=== PATIENT | female | born 1995 | race Caucasian/White ===

== ENCOUNTER 2018-10-16 19:29 | Inpatient (IN) | payer OTHER ==
[~2018-10-16] VITALS: Ht 154.9 cm; Wt 72.7 kg
[2018-10-16 19:32] VITALS: Ht 154.9 cm; Wt 72.7 kg
[2018-10-16] MEDS ORDERED: HYDROmorphONE 2 MG/ML SYG IV ONE (20:00)
[2018-10-16] MEDS ORDERED: ONDANSETRON 4 MG INJ IV ONE (20:00)
[2018-10-16] MEDS ORDERED: HYDROmorphONE 1 MG/ML SYG IV STA (20:11)
[2018-10-16] MEDS ORDERED: ONDANSETRON 4 MG INJ IV STA (20:11)
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
[2018-10-16] MEDS ORDERED: ONDANSETRON 4 MG INJ IV PRN (22:30)
[2018-10-16] MEDS ORDERED: ACETAMINOPHEN 325 MG TAB PO PRN (22:30)
[2018-10-16] MEDS ORDERED: HYDROmorphONE 2 MG/ML SYG IV STA (22:38)
[2018-10-16] MEDS ORDERED: IOHEXOL 300MG/ML 150 ML BTL ONE (23:39)
[2018-10-16] MEDS ORDERED: SOD CHLORIDE 0.9% 100 ML ONE (23:39)
[2018-10-17] VITALS (24 sets, daily range): BP systolic 107–154; BP diastolic 70–104; PULSE 72–107; RESP 12–28
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
[2018-10-17] MEDS ORDERED: IBUP-1542 PO (00:19)
[2018-10-17] MEDS ORDERED: ONDANSETRON 4 MG TAB PO PRN (01:30)
[2018-10-17] MEDS ORDERED: HYDROCODONE/APAP (5/325) TAB PO PRN ×2 (01:30)
[2018-10-17] MEDS ORDERED: ACETAMINOPHEN 325 MG TAB PO PRN (01:30)
[2018-10-17] MEDS ORDERED: NACL 0.9% 3 ML SYG IV SCH ×2 (01:30→08:30)
[2018-10-17] MEDS ORDERED: DOCUSATE SODIUM 100 MG CAP PO PRN (01:30)
[2018-10-17] MEDS: FAMOTIDINE 20 MG TAB PO SCH ×3 (01:52→20:17)
[2018-10-17] MEDS: D5-NS + KCL 20 MEQ 1,000 ML IV SCH ×3 (01:53→20:17)
[2018-10-17] MEDS ORDERED: HYDROmorphONE 1 MG/ML SYG IV ONE (05:30)
--- NOTE | 2018-10-17 06:20 | HPN ---
Date/Time of Note Date/Time of Note DATE: 10/17/18 TIME: 06:19 Interval H&P Admission Note Pt. seen H&P reviewed: No system changes Patient denies fever, chills, shortness of breath, chest pain, nausea/vomiting, constipation, diarrhea. Continues to have some numbness, and tingling in the deep peroneal nerve distribution otherwise neurovascularly intact. Compartments are full but compressible. No pain out of proportion to passive extension of great toe. MUSCULOSKELETAL: Right lower extremity There is a superficial abrasion over the anteromedial ankle. There is severe swelling and ecchymosis. There is new formation of fracture blisters both serous and sanguinous over the medial aspect of the ankle and foot. Sensation is intact but decreased to deep peroneal nerve distribution. Sensation intact to light touch in a sural, saphenous, superficial peroneal, medial and lateral plantar nerve distribution. Motor is intact, patient able to dorsiflex and plantarflex ankle and extend and flex great toe. Dorsalis Pedis pulse +2, Brisk capillary refill. Compartments are soft. Calves non-tender to palpation bilaterally. ALBERTINA VAZQUEZ MD October 17, 2018 06:20
--- NOTE | 2018-10-17 06:20 | PREAC ---
Date/Time of Note Date/Time of Note DATE: 10/17/18 TIME: 06:18 Anesthesia Eval and Record Evaluation Time Pre-Procedure Interview DATE: 10/17/18 TIME: 06:18 Age 23 Sex female NPO: 8 hrs Preoperative diagnosis right ankle fx Planned procedure orif right open ankle fracture Past Medical History Past Medical History: None Surgery & Anesthesia Issues No known issue Meds Anticoagulation: No Beta Tomas within 24 hr: No Reason Beta Tomas not given: Pt. not on B-Tomas Reported Medications Ibuprofen* (Ibuprofen*) 600 Mg Tablet, 600 MG PO Q6H PRN for PAIN LEVEL 6-10, TAB 10/17/18 Current Medications Ondansetron HCl (Zofran Inj) 4 mg BRIDGE ORDER PRN IV NAUSEA/VOMITING Last administered on 10/16/18at 22:44; Admin Dose 4 MG; Start 10/16/18 at 22:30; Stop 10/17/18 at 22:29 Acetaminophen (Tylenol Tab) 650 mg ER BRIDGE PRN PO .MILD PAIN 1-3 OR TEMP; Start 10/16/18 at 22:30; Stop 10/17/18 at 22:29 IV Flush (NS 3 ml) 3 ml PER PROTOCOL IV ; Start 10/17/18 at 01:30 Ondansetron HCl (Zofran Tab) 4 mg Q6H PRN PO NAUSEA/VOMITING; Start 10/17/18 at 01:30 Acetaminophen (Tylenol Tab) 650 mg Q6H PRN PO .PAIN 1-3 OR TEMP; Start 10/17/18 at 01:30 Acetaminophen/ Hydrocodone Bitart ([place] (5/325)) 1 tab Q6H PRN PO .MOD PAIN 4- 6; Start 10/17/18 at 01:30 Acetaminophen/ Hydrocodone Bitart ([place] (5/325)) 2 tab Q6H PRN PO .SEVERE PAIN 7-10 Last administered on 10/17/18at 01:53; Admin Dose 2 TAB; Start 10/17/18 at 01:30 Docusate Sodium (Colace) 100 mg Q12H PRN PO .CONSTIPATION; Start 10/17/18 at 01:30 Famotidine (Pepcid) 20 mg Q12 PO Last administered on 10/17/18at 01:52; Admin Dose 20 MG; Start 10/17/18 at 01:30 Potassium Chloride/Dextrose/ Sod Cl 1,000 ml @ 100 mls/hr Q10H IV Last administered on 10/17/18at 01:53; Admin Dose 100 MLS/HR; Start 10/17/18 at 01:30 Meds reviewed: Yes Allergies Coded Allergies: No Known Allergy (Unverified , 10/16/18) Allergies Reviewed: Yes Labs/Studies Labs Reviewed: Reviewed by anesthesiologist Result Diagram: 10/16/18210410/16/182104 Laboratory Tests 10/16/18 21:05 test: Negative Pre-procedure Exam Last vitals Vital Signs Date Temp Pulse Resp B/P (MAP) Pulse Ox O2 O2 Flow FiO2 Time Delivery Rate 10/17/18 98.7 83 20 146/84 98 00:45 (104) 10/17/18 Room Air 00:22 Airway: Adequate mouth opening, Adequate thyromental dist Mallampati: Mallampati II Teeth: Normal Lung: Normal Heart: Normal ASA Physical Status ASA physical status: 1 Emergency: E Planned Anesthetic General/MAC: LMA Planned Pain Management Parenteral pain med Pre-operative Attestations Prior to commencing anesthesia and surgery, the patient was re-evaluated, there was verification of: *The patient's identity *The results of appropriate recent lab work and preoperative vital signs *The above evaluation not changing prior to induction *Anesthetic plan, risk benefits, alternative and complications discussed with patient/family; questions answered; patient/family understands, accepts and wishes to proceed. OSCAR MCDONNELL October 17, 2018 06:20
[2018-10-17] MEDS ORDERED: PROPOFOL 20 ML ONE (06:24)
[2018-10-17] MEDS ORDERED: LIDOCAINE 2% (SDV) 5 ML INJ ONE (06:39)
[2018-10-17] MEDS ORDERED: ROCURONIUM 50 MG INJ ONE (06:39)
[2018-10-17] MEDS ORDERED: DEXAMETHASONE 4 MG/ML 5 ML INJ ONE (06:39)
[2018-10-17] MEDS ORDERED: ONDANSETRON 4 MG INJ ONE (06:40)
[2018-10-17] MEDS ORDERED: morphine 10 MG INJ ONE (06:52)
[2018-10-17] MEDS ORDERED: KETOROLAC 30 MG INJ ONE (07:49)
--- NOTE | 2018-10-17 08:14 | PAC ---
Date/Time of Note Date/Time of Note DATE: 10/17/18 TIME: 08:13 Post-Anesthesia Notes Post-Anesthesia Note Last documented vital signs Vital Signs Date Temp Pulse Resp B/P (MAP) Pulse Ox O2 O2 Flow FiO2 Time Delivery Rate 10/17/18 98.7 83 20 146/84 98 0812 (104) 10/17/18 Room Air 00:22 Activity: WNL Respiratory function: WNL Cardiovascular function: WNL Mental status: Baseline Pain reasonably controlled: Yes Hydration appropriate: Yes Nausea/Vomiting absent: Yes OSCAR MCDONNELL October 17, 2018 08:13
[2018-10-17] MEDS ORDERED: FENTAnyl 50 MCG/ML VIAL ONE (08:25)
[2018-10-17] MEDS: LACTATED RINGER'S 1,000 ML IV SCH ×2 (08:29→19:51)
[2018-10-17] MEDS ORDERED: FENTAnyl 50 MCG/ML VIAL IV PRN ×2 (08:30)
[2018-10-17] MEDS ORDERED: hydrALAzine 20 MG INJ IV PRN (08:30)
[2018-10-17] MEDS ORDERED: ONDANSETRON 4 MG INJ IV PRN (08:30)
[2018-10-17] MEDS ORDERED: LABETALOL HCL 20MG INJ IV PRN (08:30)
[2018-10-17] MEDS ORDERED: HYDROmorphONE 1 MG/5 ML IV SYRINGE IV PRN ×3 (08:30)
[2018-10-17] MEDS ORDERED: MAGNESIUM HYDROXIDE 30ML CUP PO PRN (08:30)
[2018-10-17] MEDS: CEFAZOLIN 2 GM/50 ML (PMX) 50 ML IVPB SCH ×2 (08:30→15:27)
[2018-10-17] MEDS ORDERED: SENNA/DOCUSATE NA (8.6MG/50MG) TAB PO PRN (08:30)
[2018-10-17] MEDS ORDERED: NALOXONE (0.4 MG/ML) INJ IV PRN (08:30)
[2018-10-17] MEDS ORDERED: oxyCODONE 5 MG TAB PO PRN (08:30)
[2018-10-17] MEDS ORDERED: METOCLOPRAMIDE 10 MG INJ IV PRN (08:30)
[2018-10-17] MEDS ORDERED: BISACODYL 10 MG SUPP PR PRN (08:30)
[2018-10-17] MEDS ORDERED: EPHEDrine 25 MG/5 ML SYG IV PRN (08:30)
[2018-10-17] MEDS ORDERED: KETOROLAC 30 MG INJ IV PRN (08:30)
[2018-10-17] MEDS ORDERED: MIDAZOLAM 1 MG/ML 2 ML INJ IV PRN (08:30)
[2018-10-17] MEDS ORDERED: DIPHENHYDRAMINE 50 MG INJ IV PRN ×2 (08:30)
[2018-10-17] MEDS ORDERED: ALBUTEROL 0.083% (NEB) 2.5 MG/3 ML AMP HHN PRN (08:30)
[2018-10-17] MEDS ORDERED: MEPERIDINE 25 MG INJ IV PRN (08:30)
[2018-10-17] MEDS ORDERED: DOCUSATE SODIUM 100 MG CAP PO ONE (08:30)
[2018-10-17] MEDS ORDERED: NA PHOSPHATE/BIPHOS 133 ML ENEMA PR PRN (08:30)
[2018-10-17] MEDS: FENTAnyl 50 MCG/ML VIAL IV PRN ×2 (08:34→08:36)
[2018-10-17] MEDS ORDERED: DOCU-144 PO (10:36)
[2018-10-17] MEDS ORDERED: HYDR-3980 PO (10:36)
--- NOTE | 2018-10-17 10:37 | PDOCDIS ---
Discharge Instructions CONDITION [id number] Patient Condition: [id number] Good HOME CARE INSTRUCTIONS: [id number] Diet Instructions: [id number] Regular ACTIVITY: [id number] Activity Restrictions: [id number] No Weight Bearing FOLLOW UP/APPOINTMENTS Follow-up Plan pcp [address] Thomason 1 week JERRY MAURICIO MD October 17, 2018 10:37
[2018-10-17] MEDS: oxyCODONE 5 MG TAB PO PRN ×3 (12:35→22:46)
[2018-10-17] MEDS: ACETAMINOPHEN 500 MG TAB PO SCH ×2 (14:00→21:53)
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
[2018-10-17] MEDS: HYDROmorphONE 1 MG/ML SYG IV PRN ×2 (15:33→20:16)
[2018-10-17] MEDS ORDERED: GABAPENTIN 300 MG CAP PO SCH (21:00)
[2018-10-18] MEDS: CEFAZOLIN 2 GM/50 ML (PMX) 50 ML IVPB SCH (00:01)
[2018-10-18] MEDS: D5-NS + KCL 20 MEQ 1,000 ML IV SCH (00:02)
[2018-10-18 01:33] VITALS: BP 102/62; PULSE 86; RESP 18
[2018-10-18] MEDS: oxyCODONE 5 MG TAB PO PRN ×4 (03:13→15:46)
[2018-10-18] MEDS: ACETAMINOPHEN 500 MG TAB PO SCH ×2 (05:41→13:10)
[2018-10-18] MEDS ORDERED: ONDANSETRON 4 MG INJ IV PRN (08:30)
[2018-10-18] MEDS ORDERED: DOCUSATE SODIUM 100 MG CAP PO SCH (09:00)
[2018-10-18] MEDS ORDERED: ENOXAPARIN 40 MG/0.4 ML SYG SC SCH (09:00)
[2018-10-18] MEDS: LACTATED RINGER'S 1,000 ML IV SCH (09:04)
[2018-10-18 09:11] VITALS: BP 127/82; PULSE 83; RESP 18
[2018-10-18] MEDS: FAMOTIDINE 20 MG TAB PO SCH (09:59)
[2018-10-18] MEDS: HYDROmorphONE 1 MG/ML SYG IV PRN (13:09)
[2018-10-18 14:14] VITALS: BP 127/92; PULSE 89; RESP 19
--- NOTE | 2018-10-18 14:31 | RADRPT ---
Vent Rate: 86 bpm RR Interval: 0 msec NV Interval: 136 msec QRS Duration: 80 msec QT Interval: 356 msec QTC Interval: 426 msec P-R-T [place]: 56 - 38 - 52 degrees Normal sinus rhythm with sinus arrhythmia Normal ECG Electronically Signed By: [facility]
--- NOTE | 2018-10-18 15:54 | PN ---
Date/Time of Note Date/Time of Note DATE: 10/18/18 TIME: 15:49 Assessment/Plan Lines/Catheters IV [facility]from [facility] Saline Lock Assessment/Plan Chief Complaint/Hosp Course Postop day #1 status post external fixation right pilon fracture. Overall the patient is doing well. Her swelling appears to have peaked. Her pain is much better controlled since the external fixator was placed. I personally discussed her case with her correctional case records supervisor from [employer]. I discussed the need for her to follow-up with an orthopedic traumatologist as her injury is complex and would be best handled by that specific subspecialist. The correctional case records supervisor agreed with assessment and was placed in the appropriate referrals for orthopedic traumatologist. The patient should follow-up with the orthopedic traumatologist hopefully within a week to establish care. She will likely need definitive fixation in 2-3 weeks depending on her swelling. The patient was also given a disc with all her radiographs and CT scan. Strict elevation right lower extremity Ice Daily pin care with hydroperoxide around pin sites covered by Xeroform followed by Kerlix. Fracture blisters can be dressed with Adaptic and lightly covered with gauze. Pain control Nonweightbearing right lower extremity DVT prophylaxis: SCDs and Lovenox 40 mg daily. Patient will need to be discharged with 6 weeks of Lovenox 40 mg daily Discharge planning: From orthopedic standpoint the patient can be discharged home today as pain is well controlled, the swelling has peaked, arrangements have been made for the patient to receive Lovenox as well as follow-up with an orthopedic traumatologist. In addition there also be a nurse calling from the insurance company to check on the patient and ensure proper follow-up. Subjective 24 Hr Interval Summary Patient doing well No acute events overnight Pain is well controlled Exam/Review of Systems Vital Signs Vitals Vital Signs Date Temp Pulse Resp B/P (MAP) Pulse Ox O2 O2 Flow FiO2 Time Delivery Rate 10/18/18 98.6 89 19 127/92 94 14:14 (104) 10/17/18 Nasal 11:30 Cannula Intake and Output 10/17/18 10/17/18 10/18/18 1414:59 22:59 06:59 IntakeIntake Total 500 ml 650 ml 1630 ml OutputOutput Total 10 ml BalanceBalance 490 ml 650 ml 1630 ml Exam Free Text/Dictation General: Awake, alert, in no acute distress, pleasant and cooperative Heart: regular rhythm Lungs: breathing comfortably, no tachypnea or dyspnea MUSCULOSKELETAL: Right lower extremity: External fixator intact and in place. Pin sites are clean. Dressings are clean, dry, intact. No further progression of fracture blisters. Significant swelling remains however it has not increased since last night exam. Sensation intact to light touch in a sural, saphenous, deep peroneal, superficial peroneal, medial and lateral plantar nerve distribution. Motor is intact, patient able to dorsiflex and plantarflex ankle and extend and flex great toe. Dorsalis Pedis pulse +2, Brisk capillary refill. Compartments are soft. Calves non-tender to palpation bilaterally. Results Result Diagram: 10/18/18 0425 10/18/18 0425 ALBERTINA VAZQUEZ MD October 18, 2018 15:54
[2018-10-19] MEDS ORDERED: PANTOPRAZOLE (EC) 40 MG TAB PO SCH (06:00)
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
== END 2018-10-18 16:25 | disposition home health service (06) | DRG 494 ==
LOC: E/R 19:29 → MS1 22:23
PROVIDERS: ADMIT Internal Medicine; ATTEND Internal Medicine
PROC: 0QSG35Z Reposition Right Tibia with External Fixation Device, Percutaneous Approach (ICD-10-PCS; principal; 2018-10-17 06:00)
DX: S82.871A Displaced pilon fracture of right tibia, initial encounter for closed fracture (principal); V43.52XA Car driver injured in collision with other type car in traffic accident, initial encounter; Y92.410 Unspecified street and highway as the place of occurrence of the external cause; F17.200 Nicotine dependence, unspecified, uncomplicated
CPT/HCPCS: 36415; 70450; 71045; 72125; 72128; 72131; 73590; 73700; 74178; 80048; 80053; 81001; 83036; 84436; 84479; 84703; 85025; 85610; 85730; 93005; 96374; 96375; 96376; 97161; 97167; J0690; J1100; J1170; J1650; J1885; J2270; J2405; J3010; J3480; J7120; Q9967